=== PATIENT | male | born 1995 | race Caucasian/White ===

== ENCOUNTER 2021-04-18 11:08 | Emergency (ER) | payer SELFPAY ==
--- NOTE | 2021-04-18 13:06 | CR ---
INDICATION: Ankle Pain TECHNIQUE: Ankle radiograph 3 views right COMPARISON: None FINDINGS: Bone: No acute fractures or aggressive bone lesions are identified. Joint: The ankle mortise joint and the visualized hindfoot joints are unremarkable in appearance. No significant ankle effusion is seen. Soft tissue: The Kager fat pad and the Achilles` tendon is normal in appearance. No radiopaque foreign bodies are seen. IMPRESSION: 1. No acute osseous injuries or abnormalities are noted. Dictated by: Walter Ocampo MD @ 04/18/2021 13:05:48 (Electronically Signed)
--- NOTE | 2021-04-18 13:08 | CR ---
INDICATION: Forearm Pain TECHNIQUE: Forearm radiograph 2 views right COMPARISON: None FINDINGS: Bone: No acute fractures or aggressive bone lesions are identified. Joint: The visualized radiocarpal and elbow joints are unremarkable, but the elbow joint is not profiled. If there is pain or tenderness in this region, dedicated views of the elbow are recommended. Soft tissue: Unremarkable. No radiopaque foreign bodies are seen. IMPRESSION: 1. No acute osseous injuries or abnormalities are noted. Dictated by: Walter Ocampo MD @ 04/18/2021 13:06:17 (Electronically Signed)
--- NOTE | 2021-04-18 13:36 | CR ---
Indication: Pain Comparison: None available. Technique: AP, Lateral, and Oblique views right hand were obtained Findings: There is a small avulsion fracture of the ulnar styloid process incidentally noted. There is somewhat age-indeterminate irregularity of the 5th metacarpal which could represent sequela of remote injury. There is no other evidence of displaced fracture of the bones of the hand. There is likely a small chronic avulsion opacity adjacent to the volar plate of the middle 3rd phalanx. The joint spaces are grossly preserved. There is mild to moderate dorsal soft tissue swelling. Impression: Small avulsion fracture of the ulnar styloid process is incidentally noted. There is mild soft tissue prominence over the dorsum of the hand. No evidence of displaced fracture of the intrinsic bones of the hand with likely chronic deformity of the 5th metacarpal representing remote injury. Correlate with clinical history. Dictated by Freddie Cortez MD @ 04/18/2021 1:34:[address] Freddie Cortez @ Apr 18 2021 1:34PM
--- NOTE | 2021-04-18 13:40 | CR ---
Indication: Pain Comparison: None available. Technique: AP, Lateral, views right foot were obtained Findings: There is no displaced fracture or dislocation. There is mild hallux deformity of the 1st digit with bunion formation. There are hammertoe deformities of the 2nd through 5th digits. There is mild dorsal soft tissue swelling. Impression: Mild hallux deformity of the 1st digit and hammertoe deformities of the 2nd digit. There is minimal dorsal soft tissue swelling. There is no evidence of displaced fracture Dictated by Freddie Cortez MD @ 04/18/2021 1:38:[address] Freddie Cortez @ Apr 18 2021 1:38PM
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
== END 2021-04-18 14:05 | disposition home or self-care (01) ==
LOC: MW.ED 11:08
DX: S52.611A Displaced fracture of right ulna styloid process, initial encounter for closed fracture (principal); S50.812A Abrasion of left forearm, initial encounter; S50.811A Abrasion of right forearm, initial encounter; S80.212A Abrasion, left knee, initial encounter; S80.211A Abrasion, right knee, initial encounter; W01.0XXA Fall on same level from slipping, tripping and stumbling without subsequent striking against object, initial encounter; X50.1XXA Overexertion from prolonged static or awkward postures, initial encounter
CPT/HCPCS: 29105; 73090-26-RT; 73090-RT; 73130-26-RT; 73130-RT; 73610-26-RT; 73610-RT; 73620-26-RT; 73620-RT; 99283-25

== ENCOUNTER 2025-02-24 11:58 | Emergency (ER) | payer OTHER | END 2025-02-24 13:39 | disposition home or self-care (01) | LOC: MW.ED 11:58 | DX: S00.83XA Contusion of other part of head, initial encounter (principal); W21.07XA Struck by softball, initial encounter; Y93.89 Activity, other specified | CPT/HCPCS: 70450; 70450-26; 72125; 72125-26; 99282; 99284 ==

== ENCOUNTER 2025-03-09 09:17 | Emergency (ER) | payer OTHER ==
[2025-03-09] MEDS: Diphtheria,Pertussis(Acell),Tetanus Vaccine 0.5 ML Syringe IM ONE (09:53)
== END 2025-03-09 11:25 | disposition home or self-care (01) ==
LOC: MW.ED 09:17
DX: S60.812A Abrasion of left wrist, initial encounter (principal); Z79.899 Other long term (current) drug therapy; Z75.3 Unavailability and inaccessibility of health-care facilities; W22.8XXA Striking against or struck by other objects, initial encounter; Y93.64 Activity, baseball; Z23 Encounter for immunization
CPT/HCPCS: 73110; 90471; 90715; 99283; A9270; 99282